=== PATIENT | female | born 1980 | race Native Hawaiian/Other Pacific Islander ===

== ENCOUNTER 2025-05-21 13:44 | Emergency (ER) | payer OTHER, SELFPAY ==
[2025-05-21 13:52] VITALS: BP 144/89; PULSE 100; RESP 18; TEMP 36.8; O2SAT 98
--- OUTSIDE RECORDS SUMMARY | 2025-05-21 13:59 | XMS_ITS | Clinical Summary ---
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 30 Tablet 1 3 Active gabapentin (NEURONTIN) 100 mg capsuleIndicatio ns:Radiculopathy affecting upper extremity Take 300mg (3 tablets) at bedtime as needed, in addition ok to take 100mg twice daily as needed. 56 Capsule 4 Active cyclobenzaprine (FLEXERIL) 10 mg tabletIndication s:Radiculopathy affecting upper extremity Take 1 Tablet (10 mg) by mouth 3 times daily if needed for Muscle Spasm. 30 Tablet 4 Active benzonatate (TESSALON) 200 mg capsuleIndicatio ns:Cough, unspecified type Take 1 Capsule (200 mg) by mouth 3 times daily if needed for Cough. 15 Capsule Active Active Problems Problem Noted Date Diagnosed Date Cervical high risk HPV (human papillomavirus) te st positive 12/01/2022 Overview (01/10/2023): 12/2022 NIL/HPV+, HPV 16/18 Negative Plan: Pap and HPV in 1 year Vitamin D deficiency 01/05/2018 Colon polyp 11/01/2017 Menorrhagia with regular cycle 11/01/2017 Chronic endometritis 11/01/2017 Chronic GERD 08/05/2017 Chronic tension-type headache, not intractable 1 Resolved Problems Problem Noted Date Diagnosed Date Resolved Date Sore throat 11/11/2021 11/26/2022 Influenza-like illness 01/01/201911/26 Female perineal bleeding 10/31/2017 RLQ abdominal pain 10/30/2017 Reactive airway disease with acute exacerbation 08/29/2017 06/22/2021 Acute midline low back pain with right-sided sciatica 11/26/2022 Immunizations Immunization Administration Dates Next Due COVID-19 vaccine (Numerate 30mcg/0.3mL) P F, MDV 03/23/2021,03/03/2021 Family History Medical History Relation Name Comments Cancer-breast Maternal Aunt 2 aunts Diabetes type II Mother CVA Relation Name Status Comments Maternal Aunt Mother Social History Tobacco Use Types Packs/Day Years Used Date Smoking Tobacco: Never Smokeless Tobacco: Never Tobacco Cessation:Counseling Given: Yes Alcohol Use Standard Drinks/Week Comments No 0 (1 standard drink = 0.6 oz pur e alcohol) PHQ-2 Answer Date Recorded PHQ-2 TOTAL SCORE 4 12/17/2022 Social Connections Answer Date Recorded Do you often feel lonely or isolated from those around you? 0 06/12/2024 Financial Resource Strain Answer Date R ecorded Difficulty of Paying Living Expenses 3 06/12/2024 Difficulty of Paying Living Expenses Not on file 06/12/2024 Food Insecurity Answer Date Recorded Do you worry your food will run out before you are able to buy more? 1 06/12/2024 Transportation Needs Answer Date Record ed Does lack of transportation keep you from medica l appointments? 1 06/12/2024 Does lack of transportation keep you from work, meetings or getting things that you need? 1 06/12/2024 Housing Stability Answer Date Recorded What is your housing situation today? 1 06/12/2024 Interpersonal Safety Answer Date Record ed Are you being hit, kicked, p ushed or yelled at (see row info)? No 12/16/2024 Interpersonal Safety Abuse 12 - 18 Not on file 12/16/2024 Interpersonal Safety Ambulatory Vulnerability No t on file 12/16/2024 Utilities Answer Date Recorded Do you have trouble paying f or utilities (for example, heat, electricity, water, phone)? 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 Not on file Not on file Not on file Obstetrics History Para Term AB IAB SAB Ectopic Multiple Livin g Live Births 3 3 3 3 3 Date Outcome GA Total Labor Labor/2nd/3rd Weight Sex Type Anes PTL Ada A1 A5 Name Clin 996 Term M Vag None N Livin g Complications:None Delivery Location:[facility] 000 Term F Vag N Livin g Complications:None Delivery Location:Other 004 Term M C-Sec tion Epidur al N Livin g Complications:None Last Filed Vital Signs Vital Sign Reading Time Taken Comments Blood Pressure 118/86 12/16/2024 9:09 PM [employer] Pulse 92 12/16/2024 9:09 PM [employer] Temperature 37.3 C (99.1 F) 12/16/2024 9:09 PM [employer] Respiratory Rate 24 12/16/2024 9:09 PM [employer] Oxygen Saturation 97% 12/16/2024 9:09 PM [employer] Inhaled Oxygen Concentration - - Weight 80.3 kg (177 lb) 12/16/2024 9:09 PM [employer] Height 162.6 cm (5' 4) 12/16/2024 9:09 PM [employer] Body Mass Index 30.38 12/16/2024 9:09 PM [employer] Plan of Treatment Health Maintenance Due Date Last Done Comments Tetanus booster 1991 Hepatitis B series for 19+ (1 of 3 - 19+ 3-dose series) 1999 Colonoscopy through age 75 11/01/2022 11/01/2017 BMI (ht and wt on same day) for age 18+ 12/17/2023 12/17/2022, 11/26/2022, 06/22/2021, Additional history exists Depression screening for age 12+ 12/17/2023 12/17/2022, 12/17/2022, 10/01/2020, Additional history exists Pap test for age 21-65 12/17/2023 12/17/2022, 2022 COVID-19 vaccine series ( season) 2024 03/23/2021, 03/03/2021 Influenza Vaccine (#1) 2025 HIV for age 15-65 Completed 12/17/2022 Hepatitis C screening for age 18-79 Completed 12/17/2022 Pneumococcal series for age 6-49 Aged Out No longer eligible based on patient's age to complete this topic Procedures Procedure Name Priority Date/Time Associated Diagnosis Comments LC HIV-1/O/2, 4TH GENERATION Routine 12/17/2022 12:25 PM [employer] Encounter for screening for HIV LC HCV ANTIBODY RFX TO QUANT PCR Routine 12/17/2022 12:25 PM [employer] Need for hepatitis C screening test MER[facility]ER THIN PREP PAP SCREEN IMAGED Routine 12/17/2022 11:30 AM [employer] Screening for malignant neoplasm of cervix COLONOSCOPY 11/01/2017 8:31 AM [employer] from Last 3 Months or Most Recently Relevant to Health Maintenance Results * LC HCV ANTIBODY RFX TO QUANT PCR (12/17/2022 12:25 PM [employer]) HCV Ab Non Reactive Non Reactive 12/21/2022 10:06 PM [employer] [facility] Blood BLOOD SPECIMEN / Unknown Venipuncture / Unknown 12/17/2022 12:25 PM [employer] 12/17/2022 12:27 PM [employer] Narrative [facility] ([facility]) - 12/21/2022 10:06 PM [employer] Performed at: [address] [place] [id number] Brass Sorter: Brian Matias MD, Phone: [phone] [facility] Final Resu lt Performing Organization Address [facility]/ZIP Co de Phone Number [facility] ([facility]) [address] [place] [address], * HIV-1/O/2, 4TH GENERATION (12/17/2022 12:25 PM [employer]) Pathologist [facility] HIV Scr 4th Gen Non Reactive Non Reactive 12/21/2022 10:06 PM [employer] [facility] Comment: HIV Negative HIV-1/HIV-2 antibodies and HIV-1 p24 antigen were NOT detected. There is no laboratory evidence of HIV infection. Blood BLOOD SPECIMEN / Unknown Venipuncture / Unknown 12/17/2022 12:25 PM [employer] 12/17/2022 12:27 PM [employer]BER [facility] ([facility]) - 12/21/2022 10:06 PM [employer] Performed at: [address] [place] [id number] Brass Sorter: Brian Matias MD, Phone: [phone] us [facility] Final Resu lt Performing Organization Address City/[facility]/ZIP Co de Phone Number [facility] ([facility]) [address] [place] [address], * MERINGUER THIN PREP PAP SCREEN IMAGED (12/17/2022 11:30 AM [employer]) Case Report Gynecologic Cytology Report Case: [id number] Authorizing Provider: Oliva Bates PA Collected: 12/17/2022 1130 Ordering Location: [facility] Received: 12/17/2022 1256 Clinic First Screen: Justin Fitzpatrick Pathologist: Mala Lincoln MD Specimen: MERINGUER ThinPrep Vial Screening, Cervical 01/10/2023 10:28 AM CDT [facility] ENTRAL LABORATORY INTERPRETATION/ RESULT NEGATIVE FOR INTRAEPITHELIAL LESION OR MALIGNANCY (NIL) (none) 01/10/2023 10:28 AM CDT [facility] ENTRAL LABORATORY at 1028 CDT OTHER NON-NEOPLASTIC FINDING(S) Reactive cellular changes associated with inflammation/repa ir 01/10/2023 10:28 AM CDT [facility] ORGANISM(S) Shift in lenora suggestive of bacterial vaginosis 01/10/2023 10:28 AM CDT [facility] SPECIMEN ADEQUACY Satisfactory for evaluation Endocervical component present 01/10/2023 10:28 AM CDT [facility] ENTRAL LABORATORY HPV REQUEST HPV and PAP 01/10/2023 10:28 AM CDT [facility] ENTRAL LABORATORY Date of LMP 12/10/22 01/10/2023 10:28 AM CDT [facility] ENTRAL LABORATORY Last Pap Date unknown 01/10/2023 10:28 AM CDT [facility] ENTRAL LABORATORY Last Pap Result NIL 10:28 AM CDT [facility] Abnormal Pap or [place] Bx in last 5 years No 01/10/2023 10:28 AM CDT [facility] ENTRAL LABORATORY Menstrual Status Regular Periods 01/10/2023 10:28 AM CDT [facility] ENTRAL LABORATORY [place] Bx Done Today No 01/10/2023 10:28 AM CDT [facility] ENTRAL LABORATORY Additional Information None given 01/10/2023 10:28 AM CDT [facility] ENTRAL LABORATORY Comment: Cytology is screened at [facility] [employer] [facility] Central Laboratory - [address], [place] [address] and [facility] - [address] [place] [place] [address] and [facility] - [address] [place] [address] Interpreted at [facility] Central Laboratory - [address], [place] [address] Automated Review Successful 01/10/2023 10:28 AM [facility] Comment:Specimen processed s uccessfully by automated entry level account executive device, ThinPrep Imaging System, [employer] ANCILLARY TESTING MERINGUER HPV Ordered, Please see separate report 01/10/2023 10:28 AM [facility] Note The pap test is a screening technique, not a diagnostic procedure. It is used primarily to screen for squamous cancers and precursor lesions. Published studies have shown that it is subject to both false negative and false positive results. The pap test should not be used as the sole means to diagnose or exclude pre-malignant and malignant lesions. 01/10/2023 10:28 AM [facility] Other (Cervical) Non-Blood / Unknown 12/17/2022 11:30 AM [employer] 12/17/2022 12:56 PM [employer] Comment:Last pap normal per pt us [facility]TOLOG[facility] Final R esult [facility] [address] [place] [address], [place] * COLONOSCOPY (11/01/2017 8:31 AM [employer]) 11/01/2017 8:31 AM [employer] Narrative Transcriptions Maria C Reina DO - 11/04/2017 3:06 PM CST Patient Name: Agustina Meredith Procedure Date: 11/01/2017 Gender: Female Date of : 1980 Admit Type: Inpatient Procedure: Colonoscopy Proceduralist: Maria C Reina MD [facility] Indications/Pre-Op Diagnosis: Abdominal pain in the left lower quadrant, Abnormal CT of the GI tract Medications: Propofol per Anesthesia Procedure Description: The patient had risks, benefits and alternatives explained to andgave informed consent. The patient had a stable cardiopulmonary status and judged an adequate candidate for conscious sedation. The colonoscope was passed through the anus and advanced to thececum, identified by appendiceal orifice and ileocecal valve. Thecolonoscopy was performed without difficulty. The patient tolerated the procedure well. The quality of the bowel preparation was good. The terminalileum, ileocecal valve, appendiceal orifice, and rectum were photographed. Complications: No immediate complications. Estimated Blood Loss & Specimen: Estimated blood loss: none. Specimen collected - Yes and sent to Laboratory Findings: A 8 mm polyp was found in the sigmoid colon. The polyp waspedunculated. The polyp was removed with a hot snare. Resection and retrieval were complete. Verification of patient identification for the specimen was done. Estimated blood loss was minimal. A few small-mouthed diverticula were found in the sigmoid colon. Impressions/Post-Op Diagnosis: - One 8 mm polyp in the sigmoid colon, removed with a hot snare. Resected and retrieved. - Diverticulosis in the sigmoid colon. Recommendation: - Return patient to [facility] for [facility] care. Maria C Reina MD 11/04/2017 3:06:17 PM This report has been signed electronically. Note Initiated On: 11/01/2017 8:31 AM Maria C Reina DO PROCEDURE ORD Fi nal Result from Last 3 Months or Most Recently Relevant to Health Maintenance Insurance [address] [place] [address] [facility] [address] [place] [address] [place] [address] [place] [address] [employer] [id number] [facility] [place] [id number] Advance Directives * Full Code (Latest Code Status on File) Date Activated Date Inactivated Comments 10/30/2017 6:26 PM 11/01/2017 5:21 PM Question Answer Comments Code Status Discussion: Discussed Care Teams Church Supervisor Relationship Specialty Start Date End Date Clinic, [facility] [address] [facility] [place] [id number] PCP - General 12/15/24
--- NOTE | 2025-05-21 14:01 | ED.GENADULT ---
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 She has been sick for weak. Her eyes feel like they have pressure and her watering. She hurts more in the right side of her throat, hurts to swallow. She is getting pain radiating into the ear. Hurts in her right jaw and cheek as well. She is coughing, dry cough. She has a history of pneumonia on a couple of occasions before per report. No history of asthma, nonsmoker. She notes she had a fever a couple nights ago and then last night. She know she had a fever because she broke out into a sweat afterwards. Did not actually check her temperature. She has tried lubricating eye drops an allergy eye drops without relief. She has been using Tylenol. She cannot swallow food anymore because of the sore throat. She is able to swallow liquids. Related Data Home Medications ?Medication ?Instructions ?Recorded ?Confirmed omeprazole 20 mg capsule,delayed 20 mg PO DAILY 01/24/23 01/24/23 release sertraline 50 mg tablet (Zoloft) 50 mg PO DAILY 01/24/23 01/24/23 Previous Rx's ?Medication ?Instructions ?Recorded amoxicillin 875 mg-potassium 1 tab PO BID #20 tabs 05/21/25 clavulanate 125 mg tablet Allergies Allergy/AdvReac Type Severity Reaction Status Date / Time blueberry Allergy Severe Anaphylaxis Verified 05/21/25 15:20 milk Allergy Unknown Verified 05/21/25 15:20 egg Allergy stomach Verified 05/21/25 15:20 upset Influenza Virus Vaccines Allergy Rash Verified 05/21/25 15:20 methocarbamol (From Robaxin) Allergy Confusion Verified 05/21/25 15:20 peanut Allergy Rash Verified 05/21/25 15:20 soy Allergy gi upset Verified 05/21/25 15:20 Review of Systems Status of ROS: Reports: 6 or more systems reviewed and unremarkable except as noted in History and below [facility] Surgical History Hx of tubal ligation ?Z98.51 - Tubal ligation status (ICD-10) Hx of cholecystectomy ?Z90.49 - Acquired absence of other specified parts of digestive tract (ICD-10) Hx of section ?Z98.891 - History of uterine scar from previous surgery (ICD-10) Social History Smoking Status: Never smoker Do you use any of these nicotine containing products: None How often do you have a drink containing alcohol: 2-3 times a week AUDIT-C Alcohol total score: 3 Non-prescribed substance use: denies use Exam Const: Vital Signs, click to edit/add: Vital Signs - 24 hr 05/21/25 13:52 05/21/25 14:13 05/21/25 16:14 Temperature 98.3 F 97.1 F L Pulse Rate [Pulse Oximeter] 100 83 Respiratory Rate 18 18 Blood Pressure [Ri ght Upper Arm] 144/89 H 117/75 Pulse Oximetry 98 98 98 Oxygen Delivery Me thod Room Air Room Air This 44-year-old female is alert, interactive, no apparent distress. She is sitting up in the chair in exam room 4. She is breathing easily on room air, speech sounds normal, not hoarse. She is able to speak in complete sentences. Pupils are equal round reactive, sclera clear, extraocular muscles intact. Face is atraumatic, no swelling, no tenderness over her right cheek or jaw or the parotid gland. Both tympanic membranes are normal, normal translucent bilaterally, no evidence of infection seen. I do not feel any definite neck masses or significant adenopathy but she is tender when I palpate on the right neck anteriorly. Oropharynx with normal mucosa, no exudates erythema, normal airway. Lungs are clear, good air entry, no wheezing or crackles, no tachypnea, no accessory muscle use. CV regular rate and rhythm, no murmur, normal S1-S2. Documenting provider has reviewed patient's vital signs: yes Course Course ED Course: This patient is coming in with one-sided sore throat, will get soft tissue neck to rule out tonsillitis with peritonsillar abscess or infection on 1 side of the throat. Will also look at a portable chest x-ray to rule out pneumonia for her, she is concerned of this. We will place an IV as she will needed for this CT but will also use it to give her some IV fluids, 2 mg IV morphine and some Zofran to premedicate for the morphine. She states she does need pain management. Will also do appropriate labs. Nursing staff a done strep testing on arrival, will also do triple viral swab. Reevaluation(s) Time of Reevaluation #1: 15:51 Reevaluation #1: Have reviewed normal chest x-ray, CT consistent with tonsillitis but no peritonsillar abscess. Right side does seem worse on the CT than the left which is likely why she is having symptoms she is. Labs are overall reassuring. Her triple viral swab went down to the lab late, will contact her after discharge if there is any concerning change on this. She does need antibiotics for the tonsillitis and we will send this in. Vital Signs Vital signs: Initial Vital Signs Temperature 98.3 F 05/21/25 13:52 Temperature Source Temporal Artery Scan 05/21/25 13:52 Pulse Rate 100 05/21/25 13:52 Respiratory Rate 18 05/21/25 13:52 Blood Pressure 144/89 H 05/21/25 13:52 Blood Pressure Mean 107 H 05/21/25 13:52 Blood Pressure Position Sitting 05/21/25 13:52 Pulse Oximetry 98 05/21/25 13:52 Oxygen Delivery Method Room Air 05/21/25 13:52 Vital Signs Temperature 98.3 F 05/21/25 13:52 Pulse Rate 100 05/21/25 13:52 Respiratory Rate 18 05/21/25 13:52 Blood Pressure 144/89 H 05/21/25 13:52 Pulse Oximetry 98 05/21/25 13:52 Oxygen Delivery Method Room Air 05/21/25 13:52 Temperature 97.1 F L 05/21/25 16:14 Pulse Rate 83 05/21/25 16:14 Respiratory Rate 18 05/21/25 16:14 Blood Pressure 117/75 05/21/25 16:14 Pulse Oximetry 98 05/21/25 16:14 Oxygen Delivery Method Room Air 05/21/25 16:14 Medications Administered Medications: Discontinued Medications Generic Name Dose Route Start Last Admin Trade Name Freq PRN Reason Stop Dose Admin Morphine Sulfate 2 mg 05/21/25 14:30 05/21/25 14:47 Morphine 2 Mg/Ml Inj IVP 05/21/25 14:31 2 mg ONCE ONE Administration Ondansetron HCl 4 mg 05/21/25 14:30 05/21/25 14:46 Ondansetron 2 Mg/Ml Inj IVP 05/21/25 14:31 4 mg ONCE ONE Administration Medical Decision Making Lab Data Lab results reviewed: Yes I reviewed the patient's lab results Labs: Lab Results 05/21/25 05/21/25 05/21/25 Range/Units 14:00 14:14 15:17 WBC 7.32 (4.50-11.00) K/uL RBC 4.69 (4.00-5.20) m/uL Hgb 13.5 (12.0-16.0) gm/dL Hct 40.3 (33.0-51.0) % MCV 86 (80-100) fL MCH 29 (26-34) pg MCHC 34 (32-36) gm/dL RDW Coeff of Shyla 13.0 (11.5-15.5) % Plt Count 296 (140-440) K/uL Neut % (Auto) 70.3 (42.0-72.0) % Lymph % (Auto) 20.5 (20-44) % [place] % (Auto) 6.0 (0.0-11.0) % Eos % (Auto) 2.7 (0.0-7.0) % Baso % (Auto) 0.4 (0.0-3.0) % Neut # (Auto) 5.14 (1.7-7.0) K/uL Lymph # (Auto) 1.50 (0.90-2.90) K/uL [place] # (Auto) 0.40 (0.00-0.90) K/UL Eos # (Auto) 0.20 (0.00-0.50) K/uL Baso # (Auto) 0.03 (0.00-0.30) K/uL Abs Immat Gran (auto) 0.01 (0.00-0.30) K/uL Imm/Tot Granulo (auto) 0.1 % Sodium 139 (135-149) mmol/L Potassium 3.6 (3.6-5.1) mmol/L Chloride 104 (96-114) mmol/L Carbon Dioxide 29 (20-32) mmol/L Anion Gap 6 L (7-15) mEq/L BUN 8 (5-24) mg/dL Creatinine 0.5 (0.5-1.5) mg/dL Estimated GFR 119 ml/min Glucose 127 H (60-115) mg/dL Lactate 2.6 H (0.5-1.9) mmol/L Calcium 8.9 (8.4-10.6) mg/dL C-Reactive Protein < 0.5 L (0.5-1.0) mg/dL SARS-CoV-2 (PCR) Negative SARS-CoV-2 (Negative) Influenza Type A (PCR) Negative PCR FLU A (Negative) Influenza Type B (PCR) Negative PCR FLU B (Negative) RSV (PCR) Negative PCR RSV (Negative) Group A Strep DNA NOT DETECTED (Not Detectd) Imaging Data Chest x-ray: Attestation: I have reviewed the pertinent imaging results. Radiologist's impression: Patient: BABITA RICHARDSON Facility:?[facility] Patient ID:?[id number] Site Patient ID:?[id number]. Site :?[id number] Study:?XRay-Chest 1V-05/21/2025 3:18:42 PM Ordering Physician:Rosy Schmid Final Report: Indication: Cough Technique: Chest 1 view Comparison: None Findings/Impression: Cardiovascular and mediastinum: Heart size and vasculature are normal in caliber and appearance. Lungs and pleural space: Lungs are clear. No sign of infiltrate or mass. No sign of pleural effusion. No pneumothorax. Bones and soft tissues: Artifact, presumably from the patient`s hair overlies the left hemithorax. Right upper quadrant surgical clips. Dictated by Vignesh Cobian MD @ 05/21/2025 3:32:38 PM (Electronic Signature) CT- Other: Attestation: I have reviewed the pertinent imaging results. My impression: Did not visualize any peritonsillar abscess on my preliminary review, await radiology reading Radiologist's impression: Patient: BABITA RICHARDSON Facility:?[facility] Patient ID:?[id number] Site Patient ID:?[id number]. Site :?[id number] Study:?CT-ST Neck 93CC ISOVUE 370-05/21/2025 3:18:33 PM Ordering Physician:Rosy Schmid Final Report: INDICATION: Right-sided sore throat. TECHNIQUE: CT soft tissue of the neck was acquired with 93 cc of Isovue 370 IV contrast. COMPARISON: None. FINDINGS: Mild heterogeneous enhancement of the tonsillar soft tissues, right greater than left. No discrete peritonsillar fluid collection. Oral cavity, nasopharynx, oropharynx, hypopharynx, larynx and subglottic trachea as imaged are otherwise unremarkable. No retropharyngeal fluid or suspicious fluid collection elsewhere in the neck. No pathologic lymphadenopathy. Parotid and submandibular glands: Unremarkable. Thyroid gland: Unremarkable. Vessels: Major vascular structures are grossly patent. Paranasal sinuses and orbits: Unremarkable as imaged. Bones: No acute or suspicious osseous abnormality. Lung apices: Visualized lung apices are clear. IMPRESSION: Findings worrisome for tonsillitis. No evidence of peritonsillar abscess. Dictated by Erik Vigil MD @ 05/21/2025 3:34:20 PM Please note that all CT scans at this facility use dose modulation, iterative reconstruction, and/or weight-based dosing when appropriate to reduce radiation dose to as low as reasonably achievable. Dictated by: Erik Vigil MD @ 05/21/2025 15:34:49 (Electronic Signature) Discharge Plan Discharge Clinical Impression: Acute tonsillitis Patient Disposition: Home, Self-Care Condition: Stable Instructions: Tonsillitis (ED) Additional Instructions: Start antibiotics and take as prescribed. Try to drink small sips of fluids, can see if it is easier to drink cold or warm fluids. 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 Use Tylenol 1000 mg 3 times a day baseline for pain. Can supplement with ibuprofen 600 mg up to 4 times a day as needed for extra pain management. If you are not improving over the next week, feel you are worsening at any point, please seek re-evaluation. Activity Level: No Restrictions Prescriptions: New amoxicillin-pot clavulanate 875-125 mg tablet 1 tab PO BID Qty: 20 0RF No Action sertraline [Zoloft] 50 mg tablet 50 mg PO DAILY omeprazole 20 mg capsule,delayed release(DR/EC) 20 mg PO DAILY Follow Up/Referrals: Hiral Vidales MD [Staff Physician, Internal Medicine] Stand Alone Forms: [facility] Info Instructions
[2025-05-21 14:13] VITALS: O2SAT 98
--- NOTE | 2025-05-21 14:13 | CRLHL7_ITS ---
For Patients: As a result of the Century Cures Act, medical imaging exams and procedure reports are released immediately into your electronic medical record. You may view this report before your referring provider. If you have questions, please contact your health care provider. INDICATION: Right-sided sore throat. TECHNIQUE: CT soft tissue of the neck was acquired with 93 cc of Isovue 370 IV contrast. COMPARISON: None. FINDINGS: Mild heterogeneous enhancement of the tonsillar soft tissues, right greater than left. No discrete peritonsillar fluid collection. Oral cavity, nasopharynx, oropharynx, hypopharynx, larynx and subglottic trachea as imaged are otherwise unremarkable. No retropharyngeal fluid or suspicious fluid collection elsewhere in the neck. No pathologic lymphadenopathy. Parotid and submandibular glands: Unremarkable. Thyroid gland: Unremarkable. Vessels: Major vascular structures are grossly patent. Paranasal sinuses and orbits: Unremarkable as imaged. Bones: No acute or suspicious osseous abnormality. Lung apices: Visualized lung apices are clear. IMPRESSION: Findings worrisome for tonsillitis. No evidence of peritonsillar abscess. Dictated by Erik Vigil MD @ 05/21/2025 3:34:20 PM Please note that all CT scans at this facility use dose modulation, iterative reconstruction, and/or weight-based dosing when appropriate to reduce radiation dose to as low as reasonably achievable. Dictated by: Erik Vigil MD @ 05/21/2025 15:34:49 (Electronically Signed)
--- NOTE | 2025-05-21 14:13 | CRLHL7_ITS ---
For Patients: As a result of the Century Cures Act, medical imaging exams and procedure reports are released immediately into your electronic medical record. You may view this report before your referring provider. If you have questions, please contact your health care provider. Indication: Cough Technique: Chest 1 view Comparison: None Findings/Impression: Cardiovascular and mediastinum: Heart size and vasculature are normal in caliber and appearance. Lungs and pleural space: Lungs are clear. No sign of infiltrate or mass. No sign of pleural effusion. No pneumothorax. Bones and soft tissues: Artifact, presumably from the patient`s hair overlies the left hemithorax. Right upper quadrant surgical clips. Dictated by Vignesh Cobian MD @ 05/21/2025 3:32:38 PM (Electronically Signed)
[2025-05-21 14:37] LABS: Strep A DNA Probe* NOT DETECTED (Not Detectd)
[2025-05-21 14:45] LABS: Hematocrit 40.3 % (33.0-51.0); Hemoglobin* 13.5 gm/dL (12.0-16.0); Immature Granulocytes Abs Auto 0.01 K/uL (0.00-0.30); Immature Granulocytes Pct Auto 0.1 %; Lymphocytes Absolute Auto 1.50 K/uL (0.90-2.90); Mean Corpuscular HGB Conc 34 gm/dL (32-36); Mean Corpuscular Hemoglobin 29 pg (26-34); Mean Corpuscular Volume 86 fL (80-100); RDW Coefficient of Variation % 13.0 % (11.5-15.5); Red Blood Count 4.69 m/uL (4.00-5.20); White Blood Count* 7.32 K/uL (4.50-11.00)
[2025-05-21] MEDS: ONDANSETRON 2 MG/ML inj 4 MG IVP (14:46)
[2025-05-21 14:49] LABS: Slide Review Reflex No
[2025-05-21 15:03] LABS: Chloride* 104 mmol/L (96-114); Potassium* 3.6 mmol/L (3.6-5.1); Sodium* 139 mmol/L (135-149)
[2025-05-21 15:05] LABS: Blood Urea Nitrogen* 8 mg/dL (5-24); Creatinine* 0.5 mg/dL (0.5-1.5); Estimated Glomerular Filt Rate 119 ml/min
[2025-05-21 15:06] LABS: Anion Gap 6 mEq/L (7-15); Calcium* 8.9 mg/dL (8.4-10.6); Carbon Dioxide* 29 mmol/L (20-32); Glucose* 127 mg/dL (60-115)
[2025-05-21 15:07] LABS: Lactate* 2.6 mmol/L (0.5-1.9)
[2025-05-21 16:01] LABS: PCR FLU A Negative PCR FLU A (Negative); PCR FLU B Negative PCR FLU B (Negative); PCR RSV Negative PCR RSV (Negative); SARS PCR* Negative SARS-CoV-2 (Negative)
[2025-05-21 16:14] VITALS: BP 117/75; PULSE 83; RESP 18; TEMP 36.2; O2SAT 98
== END 2025-05-21 16:15 | disposition home or self-care (01) ==
PROVIDERS: Emergency Provider Family Medicine
DX: J03.90 Acute tonsillitis, unspecified (principal)
CPT/HCPCS: 36415; 70491; 71045; 80048; 83605; 85025; 86140; 87631; 87651; 94761; 96374; 96375; 99284; J2270; J2405; Q9967

== ENCOUNTER 2025-08-07 17:08 | Inpatient (IN) | payer OTHER, SELFPAY ==
[2025-08-07] VITALS (7 sets, daily range): BP systolic 121–160; BP diastolic 69–92; PULSE 93–110; RESP 16–18; TEMP 36.6–37.2; O2SAT 97–100; BMI 29.3; BMI 29.4
[2025-08-07 19:12] LABS: Appearance Urine Clear (Clear)
--- NOTE | 2025-08-07 19:17 | CRLHL7_ITS ---
For Patients: As a result of the Century Cures Act, medical imaging exams and procedure reports are released immediately into your electronic medical record. You may view this report before your referring provider. If you have questions, please contact your health care provider. Indication: Left lower quadrant abdominal pain, difficulty having BM, suprapubic pain Technique: Volumetric multidetector CT images of the abdomen and pelvis were obtained after the administration of intravenous contrast. 92 cc Isovue 370 low osmolar intravenous contrast Comparison: None available. Findings: The lung bases are clear. The liver is normal in attenuation without intrahepatic biliary ductal dilatation. The portal vein is patent. There is prior cholecystectomy. There is no significant common biliary ductal dilatation or abrupt cut off. The spleen is normal in enhancement and size. The stomach and duodenum are grossly unremarkable. The pancreas is normal in enhancement without significant atrophy. The adrenal glands are unremarkable. The kidneys demonstrate preserved corticomedullary differentiation without evidence of obstructive uropathy. There is moderate focal thickening and pericolonic inflammation of the distal descending/proximal sigmoid colon with likely a small contained microperforation. Additional nonspecific fluid is seen within mid to distal small bowel. The appendix is unremarkable. There is no significant mesenteric, retroperitoneal, or pelvic sidewall lymph nodes. The aorta is nonaneurysmal. There is no significant atherosclerotic disease appreciated. Cystic change of the left ovary is appreciated with likely minimal physiologic fluid in the cul de sac. There is no free fluid or free air. Mild diastasis of the rectus muscles with a small fat containing umbilical hernia. The lumbar vertebral body heights are grossly maintained in satisfactory alignment without evidence of displaced fracture, lytic or blastic lesion. Impression: 1. Focal thickening and marked pericolonic inflammatory changes of the distal descending colon commensurate with diverticulitis with likely a small contained microperforation. 2. Incidental note is made of a likely small simple cyst within the left ovary measuring 3.3 centimeters. Please note that all CT scans at this facility use dose modulation, iterative reconstruction, and/or weight-based dosing when appropriate to reduce radiation dose to as low as reasonably achievable. Dictated by [place] Dee MD @ 08/07/2025 8:14:38 PM (Electronically Signed)
[2025-08-07 19:27] LABS: Ur HCG Qualitative* Negative (Negative)
--- NOTE | 2025-08-07 19:37 | ED.ABDPAIN ---
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 She has been having left lower quadrant abdominal pain and supra pubic pain. She has also noticed today that she has had very dark urine that is foul-smelling. Denies having symptoms like this before. Does states she has some dysuria. Has not noticed any vaginal bleeding or discharge. Has been dealing with some constipation and states her last bowel movement was yesterday. Does state it was a small amount of stool. Has not had any fevers but does states she has been having frequent chills. States the pain has started to radiate to her left flank. No pain on the right side of her abdomen or back. Has not had any chest pain or shortness of breath. States she has had some intermittent nausea but is not currently nauseated. He has had decreased oral intake due to her decreased appetite. She states she feels dehydrated. Admits to a mild headache which she thinks is from the dehydration. Nothing particular seems to make the pain better what is. No other concerns noted Related Data Home Medications ?Medication ?Instructions ?Recorded ?Confirmed No Known Home Medications 08/07/25 08/07/25 Allergies Allergy/AdvReac Type Severity Reaction Status Date / Time blueberry Allergy Severe Anaphylaxis Verified 08/07/25 19:34 milk Allergy Unknown Verified 08/07/25 19:34 egg Allergy stomach Verified 08/07/25 19:34 upset Influenza Virus Vaccines Allergy Rash Verified 08/07/25 19:34 methocarbamol (From Robaxin) Allergy Confusion Verified 08/07/25 19:34 peanut Allergy Rash Verified 08/07/25 19:34 soy Allergy gi upset Verified 08/07/25 19:34 Review of Systems Status of ROS Reports: 10 or more systems reviewed and unremarkable except as noted in History and below [facility], [facility] Surgical History Hx of tubal ligation ?Z98.51 - Tubal ligation status (ICD-10) Hx of cholecystectomy ?Z90.49 - Acquired absence of other specified parts of digestive tract (ICD-10) Hx of section ?Z98.891 - History of uterine scar from previous surgery (ICD-10) Social History Smoking Status: Never smoker Do you use any of these nicotine containing products: None How often do you have a drink containing alcohol: 2-3 times a week AUDIT-C Alcohol total score: 3 Non-prescribed substance use: denies use Exam Narrative: Exam Narrative: Const: Well-nourished, Well-developed, in mild distress Eyes: PERRL, no conjunctival injection, and symmetrical lids HENT: Atraumatic external nose and ears. Moist mucous membranes. Neck: Symmetric, trachea midline, No thyromegaly. CVS: Tachycardic, No murmurs or gallops. Peripheral pulses 2+ and equal in all extremities RESP: Unlabored respiratory effort. Clear to auscultation bilaterally. GI: Suprapubic and left lower quadrant tenderness, Nondistended, No rebound or guarding. Left CVA tenderness MSK:Extremities w/o deformity, Normal Active ROM Skin: Warm, Dry. No rashes or lesions. Neuro: Normal Muscle tone, No focal neurological deficits. Psych: Awake, Alert, & Oriented x3. Appropriate mood and affect. Const: Vital Signs, click to edit/add: Vital Signs - 24 hr 08/07/25 17:51 08/07/25 19:59 08/07/25 20:00 Temperature 98.9 F Pulse Rate 97 96 Pulse Rate [Pulse Oximeter] 110 H Respiratory Rate 18 16 Blood Pressure 126/76 Blood Pressure [Ri ght Upper Arm] 126/73 Pulse Oximetry 99 99 99 Oxygen Delivery Me thod Room Air Course Vital Signs Vital signs: Initial Vital Signs Temperature 98.9 F 08/07/25 17:51 Temperature Source Temporal Artery Scan 08/07/25 17:51 Pulse Rate 110 H 08/07/25 17:51 Respiratory Rate 18 08/07/25 17:51 Blood Pressure 126/73 08/07/25 17:51 Blood Pressure Mean 90 08/07/25 17:51 Pulse Oximetry 99 08/07/25 17:51 Oxygen Delivery Method Room Air 08/07/25 17:51 Vital Signs Temperature 98.9 F 08/07/25 17:51 Pulse Rate 110 H 08/07/25 17:51 Respiratory Rate 18 08/07/25 17:51 Blood Pressure 126/73 08/07/25 17:51 Pulse Oximetry 99 08/07/25 17:51 Oxygen Delivery Method Room Air 08/07/25 17:51 Temperature 98.9 F 08/07/25 17:51 Pulse Rate 96 08/07/25 20:00 Respiratory Rate 16 08/07/25 19:59 Blood Pressure 126/76 08/07/25 19:59 Pulse Oximetry 99 08/07/25 20:00 Oxygen Delivery Method Room Air 08/07/25 17:51 Medications Administered Medications: Discontinued Medications Generic Name Dose Route Start Last Admin Trade Name Freq PRN Reason Stop Dose Admin Lactated Ringer's 1,000 mls @ 1,000 mls/hr 08/07/25 19:17 08/07/25 19:59 Lactated Ringers 1000 Ml IV 08/07/25 20:16 1,000 mls/hr .Q1H ONE Administration Morphine Sulfate 4 mg 08/07/25 19:17 08/07/25 19:59 Morphine 4 Mg/Ml Inj IVP 08/07/25 19:18 4 mg ONCE ONE Administration Ondansetron HCl 4 mg 08/07/25 19:17 08/07/25 19:59 Ondansetron 2 Mg/Ml Inj IVP 08/07/25 19:18 4 mg ONCE ONE Administration MDM - Abdominal Pain MDM Narrative Medical decision making narrative: Patient is a 45-year-old female presenting for abdominal pain. Based on her symptoms I would do have concern for UTI and pyelonephritis. Differential also includes SBO, diverticulitis, colitis. Based on the location of the pain seems unlikely to be appendicitis, pancreatitis, gallbladder liver disease. Is not having any pelvic pain and an ovarian torsion seems unlikely. Will do a CT scan with IV contrast for better evaluation. Will also urinalysis, CBC, CMP, urine test. Patient given morphine for pain, Zofran for nausea and a L of fluids for her dehydration. Patient's lab work returned showing no acute concerning abnormalities. CT scan returned reviewed by myself and the radiologist showing diverticulitis no likely small contained microperforation. I spoke to the on-call general surgeon, Dr. Ortega, who recommends ertapenem and admission. Spoke to the patient about this and she is agreeable this plan. Lab Data Labs: Lab Results 08/07/25 08/07/25 08/07/25 Range/Units 18:56 19:18 19:30 WBC 10.36 (4.50-11.00) K/uL RBC 4.61 (4.00-5.20) m/uL Hgb 13.1 (12.0-16.0) gm/dL Hct 39.7 (33.0-51.0) % MCV 86 (80-100) fL MCH 28 (26-34) pg MCHC 33 (32-36) gm/dL RDW Coeff of Shyla 13.0 (11.5-15.5) % Plt Count 348 (140-440) K/uL Neut % (Auto) 77.5 H (42.0-72.0) % Lymph % (Auto) 13.2 L (20-44) % [place] % (Auto) 7.7 (0.0-11.0) % Eos % (Auto) 1.2 (0.0-7.0) % Baso % (Auto) 0.3 (0.0-3.0) % Neut # (Auto) 8.00 H (1.7-7.0) K/uL Lymph # (Auto) 1.40 (0.90-2.90) K/uL [place] # (Auto) 0.80 (0.00-0.90) K/UL Eos # (Auto) 0.12 (0.00-0.50) K/uL Baso # (Auto) 0.03 (0.00-0.30) K/uL Abs Immat Gran (auto) 0.01 (0.00-0.30) K/uL Imm/Tot Granulo (auto) 0.1 % Diff Slide Review Acceptable Review (Acceptable) Sodium 135 (135-149) mmol/L Potassium 3.8 (3.6-5.1) mmol/L Chloride 102 (96-114) mmol/L Carbon Dioxide 25 (20-32) mmol/L Anion Gap 8 (7-15) mEq/L BUN 11 (5-24) mg/dL Creatinine 0.7 (0.5-1.5) mg/dL Estimated GFR 109 ml/min Glucose 103 (60-115) mg/dL Calcium 8.8 (8.4-10.6) mg/dL Total Bilirubin 0.8 (0.1-1.5) mg/dL AST 27 (12-35) U/L ALT 18 (4-35) U/L Alkaline Phosphatase 93 (40-150) U/L Total Protein 7.7 (6.0-8.3) g/dL Albumin 4.0 (3.3-5.0) g/dL Urine Color Yellow (Yellow) Urine Appearance Clear (Clear) Urine pH 7.0 (5.0-8.5) Ur Specific [place] 1.020 (1.000-1.030) Urine Protein 1+ A (Negative) Urine Glucose (UA) Negative (Negative) Urine Ketones Negative (Negative) Urine Blood Trace-intact A (Negative) Urine Nitrite Negative (Negative) Urine Bilirubin Negative (Negative) Urine Urobilinogen 2.0 A (0.2-1.0) Ur Leukocyte Esterase Negative (Negative) Urine RBC 0-2 (0-2) Urine WBC 2-5 (0-5) Ur Squamous Epith Cells Few (None-Few) Urine Bacteria None (None) Urine HCG, Qual Negative (Negative) Imaging Data CT scan abdomen pelvis: Radiologist's impression: 1. Focal thickening and marked pericolonic inflammatory changes of the distal descending colon commensurate with diverticulitis with likely a small contained microperforation. 2. Incidental note is made of a likely small simple cyst within the left ovary measuring 3.3 centimeters. Please note that all CT scans at this facility use dose modulation, iterative reconstruction, and/or weight-based dosing when appropriate to reduce radiation dose to as low as reasonably achievable. Dictated by Montana Dee MD @ 08/07/2025 8:14:38 PM Discharge Plan Discharge Clinical Impression: Diverticulitis of colon with perforation Patient Disposition: Admitted As Inpatient Condition: Stable
[2025-08-07 19:57] LABS: Hematocrit* 39.7 % (33.0-51.0); Hemoglobin* 13.1 gm/dL (12.0-16.0); Immature Granulocytes Abs Auto 0.01 K/uL (0.00-0.30); Immature Granulocytes Pct Auto 0.1 %; Mean Corpuscular HGB Conc 33 gm/dL (32-36); Mean Corpuscular Hemoglobin 28 pg (26-34); Mean Corpuscular Volume 86 fL (80-100); RDW Coefficient of Variation % 13.0 % (11.5-15.5); Red Blood Count* 4.61 m/uL (4.00-5.20); White Blood Count* 10.36 K/uL (4.50-11.00)
[2025-08-07] MEDS: LACTATED RINGERS 1000 ML 1,000 ML IV (19:59)
[2025-08-07] MEDS: ONDANSETRON 2 MG/ML inj 4 MG IVP (19:59)
[2025-08-07] MEDS: MORPHINE 4 MG/ML INJ IVP ×2 (19:59→23:53)
[2025-08-07 20:06] LABS: Lymphocytes Absolute Auto 1.40 K/uL (0.90-2.90); Slide Review Reflex Yes
[2025-08-07 20:11] LABS: Slide Review Acceptable Review (Acceptable)
[2025-08-07 20:17] LABS: Albumin* 4.0 g/dL (3.3-5.0); Chloride* 102 mmol/L (96-114)
[2025-08-07 20:18] LABS: Potassium* 3.8 mmol/L (3.6-5.1); Sodium* 135 mmol/L (135-149)
[2025-08-07 20:20] LABS: Alanine Aminotransferase* 18 U/L (4-35); Anion Gap 8 mEq/L (7-15); Aspartate Amino Transferase* 27 U/L (12-35); Blood Urea Nitrogen* 11 mg/dL (5-24); Carbon Dioxide* 25 mmol/L (20-32); Creatinine* 0.7 mg/dL (0.5-1.5); Estimated Glomerular Filt Rate 109 ml/min
[2025-08-07 20:21] LABS: Alkaline Phosphatase* 93 U/L (40-150); Bilirubin Total* 0.8 mg/dL (0.1-1.5); Calcium* 8.8 mg/dL (8.4-10.6); Glucose* 103 mg/dL (60-115); Total Protein* 7.7 g/dL (6.0-8.3)
--- NOTE | 2025-08-07 20:38 | P.IMHP_ITS ---
Assessment and Plan Assessment and plan (1) Diverticulitis of colon with perforation: Problem comment: - CT shows Focal thickening and marked pericolonic inflammatory changes of the distal descending colon commensurate with diverticulitis with likely a small contained microperforation - labs rather unremarkable, afebrile, vitally stable - ED provider discussed with General surgery, Dr. Ortega recommending admission with IV antibiotics - continue ertapenem as initiated in ED - IVF, bowel rest, NPO, pain and nausea management as needed - general surgeon consult for a.m. Status: Acute (2) GERD (gastroesophageal reflux disease): Problem comment: - no longer taking PPI at home, IV PPI during hospitalization Status: Acute (3) Ovarian cyst: Problem comment: - incidental finding, CT nodes likely small simple cyst within the left ovary measuring 3.3 cm - outpatient follow-up PCP Status: Acute Total Time Spent Total Time Spent: Today I spent 75 minutes seeing the patient, reviewing Expanse and EPIC notes/diagnostics, discussing the care plan with our care time that includes social work, PT/OT, pharmacy, RT, snf and documenting my impressions and plan in the medical record. Hospitalist- H&P: HPI History of Present Illness Date Seen: 08/07/25 Chief complaint: stomach pain Narrative: Agustina Meredith is a 45 year old female past medical history significant for GERD, endometritis, diverticulitis, colon polyp, vitamin-D deficiency is admitted to the medical floor from the ED for further management diverticulitis with micro perforation. Patient is seen with son and [id number] at bedside. Complains ofwith left lower quadrant abdominal pain radiating to left flank since Tuesday. Last BM was yesterday with history of constipation. no diarrhea. No bloody stools. Reports occasional nausea without vomiting. Decreased appetite. Denies dysuria or pain with urination. Mild headache which she thinks is from decreased oral intake. Denies chest pain or shortness of breath. No fevers. History of diverticulitis managed with oral antibiotics in 2023. PCP is Denis Naylor. nonsmoker. Occasional alcohol use. Review of Systems Narrative: REVIEW OF SYSTEMS: Complete review of systems performed and negative unless otherwise stated in HPI or below. Medical Decision Making Medical Decision Making Code Status: Full code [facility] Medical History Diverticulitis ?K57.92 - Diverticulitis of intestine, part unspecified, without perforation or abscess without bleeding (ICD-10) Chronic endometritis ?N71.1 - Chronic inflammatory disease of uterus (ICD-10) Colonic polyp ?K63.5 - Polyp of colon (ICD-10) GERD (gastroesophageal reflux disease) ?K21.9 - Gastro-esophageal reflux disease without esophagitis (ICD-10) Vitamin D deficiency ?E55.9 - Vitamin D deficiency, unspecified (ICD-10) Surgical History Hx of tubal ligation ?Z98.51 - Tubal ligation status (ICD-10) Hx of cholecystectomy ?Z90.49 - Acquired absence of other specified parts of digestive tract (ICD- 10) Hx of section ?Z98.891 - History of uterine scar from previous surgery (ICD-10) Social History What is your current living situation?: I presently have a place to live Problems where you live: no known problems Problems where you live details: NA In the past 12 months, utilities in danger of being shut off: no In past 12 months, lack of transportation kept you from medical appts, meetings, work, or getting things needed for daily living: no In the past 12 mos, have been you worried that your food would run out before you had money to buy more?: never true In the past 12 mos, the food you bought just didn't last and you didn't have money to buy more?: never true Highest level of school completed/degree received: high school graduate Smoking Status: Never smoker Do you use any of these nicotine containing products: None How often do you have a drink containing alcohol: monthly or less How many standard drinks containing alcohol do you have on a typical day: 1 or 2 AUDIT-C Alcohol total score: 1 Non-prescribed substance use: denies use Caffeine: Yes (coffee) How often does anyone, including family, friends and others, physically hurt you : never How often does anyone, including family, friends and others, insult or talk down to you: never How often does anyone, including family, friends and others, threaten you with harm: never How often does anyone, including family, friends and others, scream or curse at you: never service: No Meds Home Medications and Allergies Home Medications ?Medication ?Instructions ?Recorded ?Confirmed ?Type No Known Home Medications 08/07/25 1006/24 History Allergies Allergy/AdvReac Type Severity Reaction Status Date / Time blueberry Allergy Severe Anaphylaxis Verified 08/07/25 19:34 milk Allergy Unknown Verified 08/07/25 19:34 egg Allergy stomach Verified 08/07/25 19:34 upset Influenza Virus Vaccines Allergy Rash Verified 08/07/25 19:34 methocarbamol (From Robaxin) Allergy Confusion Verified 08/07/25 19:34 peanut Allergy Rash Verified 08/07/25 19:34 soy Allergy gi upset Verified 08/07/25 19:34 Exam Narrative: Exam Narrative: PHYSICAL EXAM General: Pleasant, conversant, NAD HEENT: Normocephalic, atraumatic, sclera white, EOMI, oral mucosa moist Cardiovascular: RRR, S1S2. No pitting edema Pulmonary: CTA bilaterally without rhonchi, rales, expiratory wheezes. No dyspnea Abdominal: Soft, nondistended, NTTP Neurological: Alert, answering questions appropriately, cranial nerves intact, no focal findings Extremities: No gross joint deformity or swelling. AROMI. Neurovascularly intact Skin: Warm, dry. Const: Vital Signs, click to edit/add: Vital Signs - 24 hr 08/07/25 17:51 08/07/25 19:59 08/07/25 20:00 Temperature 98.9 F Pulse Rate 97 96 Pulse Rate [Pulse Oximeter] 110 H Respiratory Rate 18 16 Blood Pressure 126/76 Blood Pressure [Ri ght Upper Arm] 126/73 Pulse Oximetry 99 99 99 Oxygen Delivery Me thod Room Air 08/07/25 20:15 08/07/25 20:30 Temperature Pulse Rate 94 98 Pulse Rate [Pulse Oximeter] Respiratory Rate 16 Blood Pressure Blood Pressure [Ri ght Upper Arm] Pulse Oximetry 97 100 Oxygen Delivery Me thod Hospitalist - H&P: Result Labs Labs: Short CBC 08/07/25 Range/Units 19:30 WBC 10.36 (4.50-11.00) K/uL Hgb 13.1 (12.0-16.0) gm/dL Hct 39.7 (33.0-51.0) % Plt Count 348 (140-440) K/uL BMP 08/07/25 19:30 Sodium 135 Potassium 3.8 Chloride 102 Carbon Dioxide 25 BUN 11 Creatinine 0.7 Glucose 103 Calcium 8.8 Liver Function 08/07/25 Range/Units 19:30 Total Bilirubin 0.8 (0.1-1.5) mg/dL AST 27 (12-35) U/L ALT 18 (4-35) U/L Alkaline Phosphatase 93 (40-150) U/L Albumin 4.0 (3.3-5.0) g/dL Urine 08/07/25 Range/Units 18:56 Urine Color Yellow (Yellow) Urine Appearance Clear (Clear) Urine pH 7.0 (5.0-8.5) Ur Specific [place] 1.020 (1.000-1.030) Urine Protein 1+ A (Negative) Urine Glucose (UA) Negative (Negative) Imaging CT scan - abdomen: Attestation: I have reviewed the pertinent imaging results. Radiologist's impression: The lung bases are clear. The liver is normal in attenuation without intrahepatic biliary ductal dilatation. The portal vein is patent. There is prior cholecystectomy. There is no significant common biliary ductal dilatation or abrupt cut off. The spleen is normal in enhancement and size. The stomach and duodenum are grossly unremarkable. The pancreas is normal in enhancement without significant atrophy. The adrenal glands are unremarkable. The kidneys demonstrate preserved corticomedullary differentiation without evidence of obstructive uropathy. There is moderate focal thickening and pericolonic inflammation of the distal descending/proximal sigmoid colon with likely a small contained microperforation. Additional nonspecific fluid is seen within mid to distal small bowel. The appendix is unremarkable. There is no significant mesenteric, retroperitoneal, or pelvic sidewall lymph nodes. The aorta is nonaneurysmal. There is no significant atherosclerotic disease appreciated. Cystic change of the left ovary is appreciated with likely minimal physiologic fluid in the cul de sac. There is no free fluid or free air. Mild diastasis of the rectus muscles with a small fat containing umbilical hernia. The lumbar vertebral body heights are grossly maintained in satisfactory alignment without evidence of displaced fracture, lytic or blastic lesion. Impression: 1. Focal thickening and marked pericolonic inflammatory changes of the distal descending colon commensurate with diverticulitis with likely a small contained microperforation. 2. Incidental note is made of a likely small simple cyst within the left ovary measuring 3.3 centimeters.
[2025-08-07] MEDS: ERTAPENEM 1 GM in 0.9 % SODIUM CHLORIDE Mini-bag 100 ML IVPB (20:49)
[2025-08-07] MEDS: SODIUM CHLORIDE 0.9 % (FLUSH) 10 ML SYRINGE 5 ML IVF (22:58)
[2025-08-07] MEDS: ACETAMINOPHEN 500 MG TABLET 1000 MG PO (23:23)
[2025-08-08] MEDS: ACETAMINOPHEN 500 MG TABLET 1000 MG PO ×2 (04:59→16:05)
[2025-08-08 05:00] VITALS: BP 114/62; PULSE 82; RESP 18; TEMP 36.9; O2SAT 97
[2025-08-08] MEDS: ONDANSETRON 2 MG/ML inj 4 MG IVP (05:31)
[2025-08-08 05:51] LABS: Hematocrit* 38.6 % (33.0-51.0); Hemoglobin* 12.7 gm/dL (12.0-16.0); Mean Corpuscular HGB Conc 33 gm/dL (32-36); Mean Corpuscular Hemoglobin 28 pg (26-34); Mean Corpuscular Volume 86 fL (80-100); Red Blood Count* 4.47 m/uL (4.00-5.20); White Blood Count* 10.04 K/uL (4.50-11.00)
[2025-08-08 05:54] LABS: Slide Review Reflex No
[2025-08-08 06:06] LABS: Chloride* 108 mmol/L (96-114); Potassium* 3.8 mmol/L (3.6-5.1); Sodium* 136 mmol/L (135-149)
[2025-08-08 06:09] LABS: Anion Gap 7 mEq/L (7-15); Blood Urea Nitrogen* 9 mg/dL (5-24); Calcium* 8.5 mg/dL (8.4-10.6); Carbon Dioxide* 21 mmol/L (20-32); Creatinine* 0.5 mg/dL (0.5-1.5); Est. Creatinine Clearance* 138.17; Estimated Glomerular Filt Rate 118 ml/min; Glucose* 100 mg/dL (60-115)
--- NOTE | 2025-08-08 07:23 | PC.NURSE ---
Pt arrived to the unit @ 2136 via wheelchair, accompanied by family. AxOx3, pleasant, and cooperative with cares. Reports pain to the LLQ of the abdomen that is being managed with PRN/scheduled medication and repositioning. Pt reported nausea during shift, PRN medication given. Emesis bag at bedside. Pt reports minimal pain with urination this morning during transfer to bathroom. SBA with IV pole. Fluids running @ 125 ml/hr. Tolerating NPO diet well. SCDs in place. Call light within reach.
[2025-08-08 09:08] VITALS: BP 102/57; PULSE 77; RESP 16; TEMP 37; O2SAT 97
[2025-08-08] MEDS: MORPHINE 4 MG/ML INJ IVP ×2 (09:08→18:57)
[2025-08-08] MEDS: PANTOPRAZOLE SODIUM 40 MG INJ IVP (09:09)
[2025-08-08] MEDS: SODIUM CHLORIDE 0.9 % (FLUSH) 10 ML SYRINGE 5 ML IVF (09:09)
--- NOTE | 2025-08-08 11:15 | PM.IMPN1 ---
Assessment and Plan Assessment and plan (1) Diverticulitis of colon with perforation: Problem comment: - history of diverticulitis; micro perforation noted on 08/07/2025 CT - IV ertapenem initiated - trial of clear liquids 08/08/2025 with immediate vomiting - general surgery following, will need outpatient colonoscopy Status: Acute (2) GERD (gastroesophageal reflux disease): Problem comment: - no longer taking PPI at home, IV PPI during hospitalization Status: Acute (3) Ovarian cyst: Problem comment: - incidental finding, CT nodes likely small simple cyst within the left ovary measuring 3.3 cm - outpatient follow-up PCP Status: Acute (4) Hematuria: Problem comment: - noted by patient, will repeat UA Status: Acute Plan - per above Subjective Date Seen: 08/08/25 Interval history: Agustina presented to the hospital yesterday with abdominal pain and nausea. Imaging in the emergency room revealed diverticulitis with micro perforation. IV ertapenem was initiated. This morning, patient attempted clear liquids, but vomited after trial. She will remain NPO status at this time given symptomatic state. Known history of diverticulitis. Last colonoscopy was in 2018 and exhibited diverticulosis with 1 tubular adenoma removed. Besides nausea and abdominal distension this morning, also noted gross hematuria this morning. Trace blood noted in UA collected in the Emergency room. Dr. Ortega of general surgery following patient. Exam Narrative: Exam Narrative: GEN: Alert, laying comfortably in bed. Appears ill but nontoxic HEENT: EOMIs bilaterally, no scleral icterus CV: RRR, No concerning murmurs R: LCTA bilaterally without concerning wheezing Ab: + distention, hypoactive bowel sounds, tenderness with palpation of stethoscope Ext: wwp, no concerning edema Skin: No concerning skin lesions or rashes on exposed skin Neuro: Nonfocal Psych: Appropriate Const: Vital Signs, click to edit/add: Vital Signs - 24 hr 08/07/25 17:51 08/07/25 19:59 08/07/25 20:00 Temperature 98.9 F Pulse Rate 97 96 Pulse Rate [Pulse Oximeter] 110 H Respiratory Rate 18 16 Blood Pressure 126/76 Blood Pressure [Le ft Arm] Blood Pressure [Ri ght Upper Arm] 126/73 Pulse Oximetry 99 99 99 Oxygen Delivery Me thod Room Air 08/07/25 20:15 08/07/25 20:30 08/07/25 21:45 Temperature 97.8 F Pulse Rate 94 98 Pulse Rate [Pulse Oximeter] 101 H Respiratory Rate 16 18 Blood Pressure Blood Pressure [Le ft Arm] 160/92 H Blood Pressure [Ri ght Upper Arm] Pulse Oximetry 97 100 100 Oxygen Delivery Me thod Room Air 08/07/25 23:12 08/07/25 23:19 08/08/25 05:00 Temperature 97.9 F 98.4 F Pulse Rate Pulse Rate [Pulse Oximeter] 93 82 Respiratory Rate 18 18 Blood Pressure Blood Pressure [Le ft Arm] 121/69 114/62 Blood Pressure [Ri ght Upper Arm] Pulse Oximetry 97 97 Oxygen Delivery Me thod Room Air Room Air Room Air 08/08/25 09:08 Temperature 98.6 F Pulse Rate Pulse Rate [Pulse Oximeter] 77 Respiratory Rate 16 Blood Pressure Blood Pressure [Le ft Arm] 102/57 L Blood Pressure [Ri ght Upper Arm] Pulse Oximetry 97 Oxygen Delivery Me thod Room Air Labs Labs: Laboratory Results - last 24 hr 08/07/25 08/07/25 08/07/25 18:56 19:18 19:30 WBC 10.36 RBC 4.61 Hgb 13.1 Hct 39.7 MCV 86 MCH 28 MCHC 33 RDW Coeff of Shyla 13.0 Plt Count 348 Neut % (Auto) 77.5 H Lymph % (Auto) 13.2 L [place] % (Auto) 7.7 Eos % (Auto) 1.2 Baso % (Auto) 0.3 Neut # (Auto) 8.00 H Lymph # (Auto) 1.40 [place] # (Auto) 0.80 Eos # (Auto) 0.12 Baso # (Auto) 0.03 Abs Immat Gran (auto) 0.01 Imm/Tot Granulo (auto) 0.1 Diff Slide Review Acceptable Review Sodium 135 Potassium 3.8 Chloride 102 Carbon Dioxide 25 Anion Gap 8 BUN 11 Creatinine 0.7 Estimated Creat Clear Estimated GFR 109 Glucose 103 Calcium 8.8 Total Bilirubin 0.8 AST 27 ALT 18 Alkaline Phosphatase 93 Total Protein 7.7 Albumin 4.0 Urine Color Yellow Urine Appearance Clear Urine pH 7.0 Ur Specific [place] 1.020 Urine Protein 1+ A Urine Glucose (UA) Negative Urine Ketones Negative Urine Blood Trace-intact A Urine Nitrite Negative Urine Bilirubin Negative Urine Urobilinogen 2.0 A Ur Leukocyte Esterase Negative Urine RBC 0-2 Urine WBC 2-5 Ur Squamous Epith Cells Few Urine Bacteria None Urine HCG, Qual Negative 08/08/25 05:38 WBC 10.04 RBC 4.47 Hgb 12.7 Hct 38.6 MCV 86 MCH 28 MCHC 33 RDW Coeff of [place]yla Plt Count 336 Neut % (Auto) Lymph % (Auto) [place] % (Auto) Eos % (Auto) Baso % (Auto) Neut # (Auto) Lymph # (Auto) [place] # (Auto) Eos # (Auto) Baso # (Auto) Abs Immat Gran (auto) Imm/Tot Granulo (auto) Diff Slide Review Sodium 136 Potassium 3.8 Chloride 108 Carbon Dioxide 21 Anion Gap 7 BUN 9 Creatinine 0.5 Estimated Creat Clear 138.17 Estimated GFR 118 Glucose 100 Calcium 8.5 Total Bilirubin AST ALT Alkaline Phosphatase Total Protein Albumin Urine Color Urine Appearance Urine pH Ur Specific [place] Urine Protein Urine Glucose (UA) Urine Ketones Urine Blood Urine Nitrite Urine Bilirubin Urine Urobilinogen Ur Leukocyte Esterase Urine RBC Urine WBC Ur Squamous Epith Cells Urine Bacteria Urine HCG, Qual
--- NOTE | 2025-08-08 11:21 | P.GSCN_ITS ---
History of Present Illness Consult details Date Seen: 08/08/25 Consult date: 08/08/25 Narrative: 45-year-old female was admitted to the hospital with left lower quadrant abdominal pain that started on Tuesday. The pain was described as sharp and dull. The pain was not going away and was progressively getting worse. Patient decided to come to the emergency room. Patient had nausea but no vomiting. She was passing gas. Her last bowel movement was yesterday. I personally reviewed her workup in the emergency room. She was found to have normal WBC. An abdominal CT was obtained that showed left ovarian cyst, there was thickening of sigmoid colon with localized microperforation. There is no evidence of an abscess. Patient states that she continues to have pain since yesterday. The pain is maybe minimally improved. She had nausea and continues to pass gas. She tried clears in the morning but vomited. She also noticed blood in her urine today. Review of Systems Narrative: General: no fevers HENT: no problems swallowing CV: no shortness of breath Resp: no cough GI: No nausea, vomiting, abdominal pain : no dysuria, no increased urinary frequency, no hematuria Skin: no new rashes Musculoskeletal: no back pain Neuro: no muscle weakness Psyche: no depression, no anxiety PFSH PFSH Medical History Diverticulitis ?K57.92 - Diverticulitis of intestine, part unspecified, without perforation or abscess without bleeding (ICD-10) Chronic endometritis ?N71.1 - Chronic inflammatory disease of uterus (ICD-10) Colonic polyp ?K63.5 - Polyp of colon (ICD-10) GERD (gastroesophageal reflux disease) ?K21.9 - Gastro-esophageal reflux disease without esophagitis (ICD-10) Vitamin D deficiency ?E55.9 - Vitamin D deficiency, unspecified (ICD-10) Surgical History Hx of tubal ligation ?Z98.51 - Tubal ligation status (ICD-10) Hx of cholecystectomy ?Z90.49 - Acquired absence of other specified parts of digestive tract (ICD- 10) Hx of section ?Z98.891 - History of uterine scar from previous surgery (ICD-10) Social History (Updated 08/08/25 @ 11:22 by Gregory Ortega MD) Narrative: Denies smoking and rarely drinks alcohol. She is currently not working. What is your current living situation?: I presently have a place to live Problems where you live: no known problems Problems where you live details: NA In the past 12 months, utilities in danger of being shut off: no In past 12 months, lack of transportation kept you from medical appts, meetings, work, or getting things needed for daily living: no In the past 12 mos, have been you worried that your food would run out before you had money to buy more?: never true In the past 12 mos, the food you bought just didn't last and you didn't have money to buy more?: never true Highest level of school completed/degree received: high school graduate Smoking Status: Never smoker Do you use any of these nicotine containing products: None How often do you have a drink containing alcohol: monthly or less How many standard drinks containing alcohol do you have on a typical day: 1 or 2 AUDIT-C Alcohol total score: 1 Non-prescribed substance use: denies use Caffeine: Yes (coffee) How often does anyone, including family, friends and others, physically hurt you : never How often does anyone, including family, friends and others, insult or talk down to you: never How often does anyone, including family, friends and others, threaten you with harm: never How often does anyone, including family, friends and others, scream or curse at you: never service: No Meds Home Medications and Allergies Home Medications ?Medication ?Instructions ?Recorded ?Confirmed ?Type No Known Home Medications 08/07/2506/24 History Allergies Allergy/AdvReac Type Severity Reaction Status Date / Time blueberry Allergy Severe Anaphylaxis Verified 08/07/25 19:34 milk Allergy Unknown Verified 08/07/25 19:34 egg Allergy stomach Verified 08/07/25 19:34 upset Influenza Virus Vaccines Allergy Rash Verified 08/07/25 19:34 methocarbamol (From Robaxin) Allergy Confusion Verified 08/07/25 19:34 peanut Allergy Rash Verified 08/07/25 19:34 soy Allergy gi upset Verified 08/07/25 19:34 Exam Narrative: Exam Narrative: General appearance: Alert, cooperative, and in no distress Pulmonary: Chest symmetric, lungs clear bilaterally Cardiovascular Heart: Regular rate and rhythm, S1, S2, no murmurs/rubs/gallops Gastrointestinal Abdominal: soft, not distended, tender to palpation in epigastrium and left lower quadrant. Tender to percussion in the left lower quadrant. There is a well-healed lower midline vertical surgical scar from patient's previous C- section. Skin: Normal skin color, texture, and turgor. No rashes or lesions. Psychiatric: Alert, cooperative, normal affect. Const: Vital Signs, click to edit/add: Vital Signs - 24 hr 08/07/25 17:51 08/07/25 19:59 08/07/25 20:00 Temperature 98.9 F Pulse Rate 97 96 Pulse Rate [Pulse Oximeter] 110 H Respiratory Rate 18 16 Blood Pressure 126/76 Blood Pressure [Le ft Arm] Blood Pressure [Ri ght Upper Arm] 126/73 Pulse Oximetry 99 99 99 Oxygen Delivery Me thod Room Air 08/07/25 20:15 08/07/25 20:30 08/07/25 21:45 Temperature 97.8 F Pulse Rate 94 98 Pulse Rate [Pulse Oximeter] 101 H Respiratory Rate 16 18 Blood Pressure Blood Pressure [Le ft Arm] 160/92 H Blood Pressure [Ri ght Upper Arm] Pulse Oximetry 97 100 100 Oxygen Delivery Me thod Room Air 08/07/25 23:12 08/07/25 23:19 08/08/25 05:00 Temperature 97.9 F 98.4 F Pulse Rate Pulse Rate [Pulse Oximeter] 93 82 Respiratory Rate 18 18 Blood Pressure Blood Pressure [Le ft Arm] 121/69 114/62 Blood Pressure [Ri ght Upper Arm] Pulse Oximetry 97 97 Oxygen Delivery Me thod Room Air Room Air Room Air 08/08/25 09:08 Temperature 98.6 F Pulse Rate Pulse Rate [Pulse Oximeter] 77 Respiratory Rate 16 Blood Pressure Blood Pressure [Le ft Arm] 102/57 L Blood Pressure [Ri ght Upper Arm] Pulse Oximetry 97 Oxygen Delivery Az thod Room Air Results Labs Labs: Abnormal lab results 08/07/25 08/07/25 Range/Units 18:56 19:30 Neut % (Auto) 77.5 H (42.0-72.0) % Lymph % (Auto) 13.2 L (20-44) % Neut # (Auto) 8.00 H (1.7-7.0) K/uL Urine Protein 1+ A (Negative) Urine Blood Trace-intact A (Negative) Urine Urobilinogen 2.0 A (0.2-1.0) Diabetes panel 08/07/25 08/08/25 Range/Units 19:30 05:38 Sodium 135 136 (135-149) mmol/L Potassium 3.8 3.8 (3.6-5.1) mmol/L Chloride 102 108 (96-114) mmol/L Carbon Dioxide 25 21 (20-32) mmol/L BUN 11 9 (5-24) mg/dL Creatinine 0.7 0.5 (0.5-1.5) mg/dL Glucose 103 100 (60-115) mg/dL Calcium 8.8 8.5 (8.4-10.6) mg/dL AST 27 (12-35) U/L ALT 18 (4-35) U/L Alkaline Phosphatase 93 (40-150) U/L Total Protein 7.7 (6.0-8.3) g/dL Albumin 4.0 (3.3-5.0) g/dL Calcium panel 08/07/25 08/08/25 Range/Units 19:30 05:38 Calcium 8.8 8.5 (8.4-10.6) mg/dL Albumin 4.0 (3.3-5.0) g/dL Pituitary panel 08/07/25 08/08/25 Range/Units 19:30 05:38 Sodium 135 136 (135-149) mmol/L Potassium 3.8 3.8 (3.6-5.1) mmol/L Chloride 102 108 (96-114) mmol/L Carbon Dioxide 25 21 (20-32) mmol/L BUN 11 9 (5-24) mg/dL Creatinine 0.7 0.5 (0.5-1.5) mg/dL Glucose 103 100 (60-115) mg/dL Calcium 8.8 8.5 (8.4-10.6) mg/dL Adrenal panel 08/07/25 08/08/25 Range/Units 19:30 05:38 Sodium 135 136 (135-149) mmol/L Potassium 3.8 3.8 (3.6-5.1) mmol/L Chloride 102 108 (96-114) mmol/L Carbon Dioxide 25 21 (20-32) mmol/L BUN 11 9 (5-24) mg/dL Creatinine 0.7 0.5 (0.5-1.5) mg/dL Glucose 103 100 (60-115) mg/dL Calcium 8.8 8.5 (8.4-10.6) mg/dL Total Bilirubin 0.8 (0.1-1.5) mg/dL AST 27 (12-35) U/L ALT 18 (4-35) U/L Alkaline Phosphatase 93 (40-150) U/L Total Protein 7.7 (6.0-8.3) g/dL Albumin 4.0 (3.3-5.0) g/dL All other labs normal. Progress Note:A&P Assessment and plan (1) Diverticulitis of colon with perforation: Status: Acute Plan 45-year-old female admitted to the hospital with acute diverticulitis with microperforation. I discussed with the patient and her family her laboratory and imaging findings. We will continue treatment with IV antibiotics since patient is stable and has microperforation on her CT scan. Patient's hematuria is of unknown etiology. Urine culture is pending. Patient had a colonoscopy 5 years ago and will need a colonoscopy 6 weeks after her diverticulitis has resolved. Patient is passing gas so he can continue trying clear liquid diet.
[2025-08-08 12:12] VITALS: BP 121/77; PULSE 70; RESP 20; TEMP 36.7; O2SAT 99
[2025-08-08 15:00] VITALS: BP 122/57; PULSE 78; RESP 18; TEMP 36.4; O2SAT 97
[2025-08-08 17:08] LABS: Appearance Urine Clear (Clear)
[2025-08-08] MEDS: ERTAPENEM 1 GM in 0.9 % SODIUM CHLORIDE Mini-bag 100 ML IVPB (18:58)
[2025-08-08 19:00] VITALS: BP 123/61; PULSE 68; RESP 18; TEMP 36.4; O2SAT 97
--- NOTE | 2025-08-08 19:15 | PC.NURSE ---
End of shift [id number] - RN took over pt care at approximately 1530. Pt alert, oriented, cooperative. Up independently in room and tolerating RA and NPO diet. Reported pain in abdomen as 7-8/10. Given medication per MAR with pt reporting improved comfort. Denied nausea during shift. Pt observed to sleep and family was noted at bedside. Pt appears comfortable at end of shift with call light within reach.
[2025-08-08] MEDS: ENOXAPARIN 40 MG/0.4 ML INJ SUBCUT (21:18)
[2025-08-08 23:00] VITALS: BP 110/50; PULSE 69; RESP 18; TEMP 36.7; O2SAT 99
[2025-08-09] MEDS: MORPHINE 4 MG/ML INJ IVP (01:20)
[2025-08-09 02:44] VITALS: BP 112/80; PULSE 74; RESP 18; TEMP 36.7; O2SAT 99
[2025-08-09 06:42] LABS: Hematocrit* 34.4 % (33.0-51.0); Hemoglobin* 11.3 gm/dL (12.0-16.0); Immature Granulocytes Abs Auto 0.01 K/uL (0.00-0.30); Immature Granulocytes Pct Auto 0.2 %; Lymphocytes Absolute Auto 1.44 K/uL (0.90-2.90); Mean Corpuscular HGB Conc 33 gm/dL (32-36); Mean Corpuscular Hemoglobin 29 pg (26-34); Mean Corpuscular Volume 87 fL (80-100); RDW Coefficient of Variation % 12.9 % (11.5-15.5); Red Blood Count* 3.96 m/uL (4.00-5.20); White Blood Count* 5.25 K/uL (4.50-11.00)
[2025-08-09 06:48] LABS: Slide Review Reflex No
[2025-08-09 06:54] LABS: Albumin* 3.4 g/dL (3.3-5.0); Chloride* 106 mmol/L (96-114); Sodium* 135 mmol/L (135-149)
[2025-08-09 06:55] LABS: Potassium* 3.5 mmol/L (3.6-5.1)
[2025-08-09 06:57] LABS: Blood Urea Nitrogen* 8 mg/dL (5-24); Creatinine* 0.5 mg/dL (0.5-1.5); Est. Creatinine Clearance* 138.17; Estimated Glomerular Filt Rate 118 ml/min
[2025-08-09 06:58] LABS: Alanine Aminotransferase* 15 U/L (4-35); Alkaline Phosphatase* 77 U/L (40-150); Anion Gap 4 mEq/L (7-15); Aspartate Amino Transferase* 22 U/L (12-35); Bilirubin Total* 0.4 mg/dL (0.1-1.5); Calcium* 8.1 mg/dL (8.4-10.6); Carbon Dioxide* 25 mmol/L (20-32); Glucose* 81 mg/dL (60-115); Total Protein* 6.5 g/dL (6.0-8.3)
[2025-08-09 07:00] VITALS: BP 131/71; PULSE 71; RESP 14; TEMP 36.3; O2SAT 96
--- NOTE | 2025-08-09 08:32 | PM.GSPN ---
Subjective Subjective Date Seen: 08/09/25 Interval history: Patient is doing well today. She tolerated some clears yesterday throughout the day. She is passing gas but did not have a bowel movement. Her pain is on and off and sometimes it is better and sometimes it is worse. Patient ambulated. Exam Narrative: Exam Narrative: Abdomen is soft, not distended, tender to palpation in the left lower quadrant and minimal tender to percussion in the left lower quadrant. The tenderness in epigastrium is improved compared to yesterday. Const: Vital Signs, click to edit/add: Vital Signs - 24 hr 08/08/25 09:08 08/08/25 12:12 08/08/25 15:00 Temperature 98.6 F 98.1 F 97.6 F Pulse Rate [Pulse Oximeter] 77 70 78 Respiratory Rate 16 20 18 Blood Pressure [Le ft Arm] 102/57 L 121/77 122/57 L Pulse Oximetry 97 99 97 Oxygen Delivery Me thod Room Air Room Air Room Air 08/08/25 19:00 08/08/25 23:00 08/08/25 23:00 Temperature 97.6 F 98.1 F Pulse Rate [Pulse Oximeter] 68 69 Respiratory Rate 18 18 18 Blood Pressure [Le ft Arm] 123/61 110/50 L Pulse Oximetry 97 99 Oxygen Delivery Me thod Room Air Room Air 08/09/25 02:44 Temperature 98.1 F Pulse Rate [Pulse Oximeter] 74 Respiratory Rate 18 Blood Pressure [Le ft Arm] 112/80 Pulse Oximetry 99 Oxygen Delivery Me thod Room Air Progress Note:A&P Assessment and plan (1) Diverticulitis of colon with perforation: Status: Acute Plan 45-year-old female admitted to the hospital with acute diverticulitis. Patient is doing well with IV antibiotics. Her exam is not worsening and she tolerated clears. I think would be reasonable to advance her diet to regular since patient feels hungry. If patient does well throughout the day, okay do discharged home on IV antibiotics. Patient will need a colonoscopy in about 6 weeks. She can follow up with primary care doctor to make sure that she is improving.
[2025-08-09] MEDS: PANTOPRAZOLE SODIUM 40 MG INJ IVP (08:37)
[2025-08-09] MEDS: ACETAMINOPHEN 500 MG TABLET 1000 MG PO (08:57)
[2025-08-09] MEDS: SODIUM CHLORIDE 0.9 % (FLUSH) 10 ML SYRINGE 5 ML IVF (09:06)
[2025-08-09 11:00] VITALS: BP 116/56; PULSE 63; RESP 12; TEMP 36.2; O2SAT 97
--- NOTE | 2025-08-09 12:45 | P.DS_ITS ---
DS: Providers Provider Date Seen: 08/09/25 Date of admission: 08/07/25 22:16 Primary care physician: Not a Local Provider Admitting Clinician: Shital Barnett MD Consults: General Surgery Attending Physician on discharge: Ana Sims MD Date of Discharge: 08/09/25 DS: Diagnosis Discharge Diagnosis (1) Diverticulitis of colon with perforation: Status: Acute Problem details: - history of diverticulitis; micro perforation noted on 08/07/2025 CT - IV ertapenem initiated 08/07, will complete 10 day course - trial of clear liquids 08/08/2025 with immediate vomiting, back to NPO and then was able to tolerate clears on 08/09 - general surgery following, will need outpatient colonoscopy in the future DS: Summary Hospital Course Hospital Course: Agustina presented to the hospital on 08/07/25 with abdominal pain and nausea. Imaging in the emergency room revealed diverticulitis with micro perforation. IV ertapenem was initiated. On 08/08, patient attempted clear liquids, but vomited after trial. She returned to NPO status, then was able to tolerate clear liquids without any nausea or vomiting on 08/09, passing flatus. Known history of diverticulitis. Last colonoscopy was in 2018 and exhibited diverticulosis with 1 tubular adenoma removed. Knows she needs another colonoscopy in the future. Dr. Ortega of general surgery followed patient during stay, no acute surgical needs identified. Patient needs total of 10 days of IV ertapenem; this is scheduled upon discharge and she will return to the hospital daily to complete this course. Agustina is appropriate for discharge home on 08/09/2025 with daily IV antibiotics and close general surgery follow-up. Status at Discharge Functional status at discharge: independent ambulation Overall status at discharge: patient is progressing back to baseline Time Spent with Patient Time attestation: Total time spent providing and/or coordinating discharge services: Time spent: Greater than 30 minutes Specific discharge activities: Medication reconciliation, patient Education, multidisciplinary team discussion Exam Narrative: Exam Narrative: GEN: Alert and oriented, nontoxic HEENT: EOMIs bilaterally, no scleral icterus CV: RRR, No concerning murmurs R: LCTA bilaterally Ab: Soft, tolerates palpation but uncomfortable, no rebound or guarding Ext: wwp, no concerning edema Skin: No concerning skin lesions or rashes on exposed skin Neuro: Nonfocal Psych: Appropriate Const: Vital Signs, click to edit/add: Vital Signs - 24 hr 08/08/25 15:00 08/08/25 19:00 08/08/25 23:00 Temperature 97.6 F 97.6 F Pulse Rate [Pulse Oximeter] 78 68 Respiratory Rate 18 18 18 Blood Pressure [Le ft Arm] 122/57 L 123/61 Pulse Oximetry 97 97 Oxygen Delivery Me thod Room Air Room Air 08/08/25 23:00 08/09/25 02:44 08/09/25 07:00 Temperature 98.1 F 98.1 F 97.3 F L Pulse Rate [Pulse Oximeter] 69 74 71 Respiratory Rate 18 18 14 Blood Pressure [Le ft Arm] 110/50 L 112/80 131/71 Pulse Oximetry 99 99 96 Oxygen Delivery Me thod Room Air Room Air Room Air 08/09/25 11:00 Temperature 97.1 F L Pulse Rate [Pulse Oximeter] 63 Respiratory Rate 12 Blood Pressure [Le ft Arm] 116/56 L Pulse Oximetry 97 Oxygen Delivery Me thod Room Air DS: Data Data Completed and Pending Labs on day of discharge: Labs from last 24 hours 08/09/25 08/08/25 06:07 17:00 WBC 5.25 RBC 3.96 L Hgb 11.3 L Hct 34.4 MCV 87 MCH 29 MCHC 33 RDW Coeff of Shyla 12.9 Plt Count 312 Neut % (Auto) 59.4 Lymph % (Auto) 27.4 [place] % (Auto) 8.8 Eos % (Auto) 3.4 Baso % (Auto) 0.8 Neut # (Auto) 3.12 Lymph # (Auto) 1.44 [place] # (Auto) 0.50 Eos # (Auto) 0.18 Baso # (Auto) 0.04 Abs Immat Gran (auto) 0.01 Imm/Tot Granulo (auto) 0.2 Sodium 135 Potassium 3.5 L Chloride 106 Carbon Dioxide 25 Anion Gap 4 L BUN 8 Creatinine 0.5 Estimated Creat Clear 138.17 Estimated GFR 118 Glucose 81 Calcium 8.1 L Total Bilirubin 0.4 AST 22 ALT 15 Alkaline Phosphatase 77 C-Reactive Protein 3.5 H Total Protein 6.5 Albumin 3.4 Urine Color Yellow Urine Appearance Clear Urine pH 6.5 Ur Specific [place] >= 1.030 Urine Protein Trace A Urine Glucose (UA) Negative Urine Ketones 2+ A Urine Blood Trace-intact A Urine Nitrite Negative Urine Bilirubin Negative Urine Urobilinogen 1.0 Ur Leukocyte Esterase Negative Preliminary micro results at discharge 08/08/25 17:00 Urine Culture - Preliminary Urine Random Culture in Progress Discharge Plan Discharge Disposition: Home, Self-Care Date of Admission: 08/07/25 22:16 Attending Provider on Discharge: Ana Sims Consulting Providers: Gregory Ortega Primary Care Provider: Provider,Not a Local Condition: Stable Anticipated Discharge Date/Time: 08/09/25 12:40 Discharge Medications: New Ertapenem 1 GM 0.9 % SODIUM CHLORIDE Mini-bag 100 ML 200 mls/hr IVPB Q24H Reason for use: diverticulitis started 08/07, total of 10 days (last date 08/16) Ordered By: Ana Sims MD Last Taken: 08/08/25 18:58 200 mls/hr ondansetron 4 mg tablet,disintegrating 4 mg PO Q6H PRN (Reason: nausea and vomiting) Qty: 14 0RF Discharge Orders: Discharge Order (Routine); Ordered 08/09/25 Ordered By: Ana Sims Patient Education: Ondansetron (By mouth), Ertapenem (By injection), Diverticulitis (DC) Additional Instructions: Continue clear liquids, you may slowly have more food that is bland as you tolerate. One banana per day is a good idea for your potassium. If you have a vomiting or any other concerns, come back to the emergency room. Tylenol can be used every 6 hours for pain as needed. Zofran can be used for nausea, I sent a prescription in to [facility] for you to mixing picker tender today. You need to complete 10 total days of IV antibiotics; come back to the hospital once/day for this. You also need to have another colonoscopy in the next few months; you can discuss further with your PCP or Dr. Ortega of General Surgery. Activity Level: No strenuous activity Diet Detail: liquid, then slowly advance as tolerated Follow Up Appointments: Gregory Ortega MD [Staff Physician, General Surgery] Referral Note: 2-3 weeks Provider,Not a Local [Primary Care Provider, Family Practice] Forms: [facility] Belongings, [facility] Info Instructions
[2025-08-09] MEDS: ERTAPENEM 1 GM in 0.9 % SODIUM CHLORIDE Mini-bag 100 ML IVPB (12:54)
--- NOTE | 2025-08-09 16:07 | PC.NURSE ---
Discharge Note Pt a/o x4 and cooperative with cares. Pt ind in room and [facility]. Pain reported 5-6/10 meds given per mar. Pt on clear liquid diet, diet tolerated. Pt IV in place at time of discharge for outpatient infusion. pt d/c home with family at 1412
== END 2025-08-09 14:12 | disposition home or self-care (01) | DRG 392 ==
LOC: ED 20:33 → MEDSURG 21:32
PROVIDERS: Family Medicine; Admitting Provider Physician Assistant; Emergency Provider Student in an Organized Health Care Education/Training Program; Visit Provider Family Medicine
DX: K57.20 Diverticulitis of large intestine with perforation and abscess without bleeding (principal); K21.9 Gastro-esophageal reflux disease without esophagitis; N83.292 Other ovarian cyst, left side; E55.9 Vitamin D deficiency, unspecified; R31.9 Hematuria, unspecified
CPT/HCPCS: 36415; 74177; 80048; 80053; 81001; 81003; 81025; 85025; 85027; 86140; 87086; 99285; A9270; J1335; J1650; J2270; J2405; J2470; J7030; J7120; Q9967

== ENCOUNTER 2025-10-28 08:28 | Outpatient (CLI) | payer OTHER, SELFPAY ==
--- NOTE | 2025-10-28 09:54 | P.ANES_ITS ---
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
--- NOTE | 2025-10-28 09:54 | W.ANESCHARGE ---
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
== END 2025-10-28 08:29 | disposition home or self-care (01) ==
PROVIDERS: Visit Provider Surgery
DX: K57.32 Diverticulitis of large intestine without perforation or abscess without bleeding (principal); D12.5 Benign neoplasm of sigmoid colon; K57.30 Diverticulosis of large intestine without perforation or abscess without bleeding
CPT/HCPCS: 00811; 45385; J2704